=== PATIENT | female | born 1940 | race Caucasian/White ===

== ENCOUNTER 2018-10-02 21:12 | Emergency (ER) | payer MEDICARE ==
[~2018-10-02] VITALS: Ht 152.4 cm; Wt 52.9 kg
[2018-10-02] MEDS ORDERED: ATEN25TA PO (21:22)
[2018-10-02] MEDS ORDERED: ONDANSETRON 4MG/2ML VIAL (J2405) IV ONE (22:45)
[2018-10-02] MEDS: MORPHINE 4 MG/ML 1ML VIAL/SYRINGE (J2270) IV PRN (22:46)
--- NOTE | 2018-10-02 22:59 | REPVR ---
EXAM: CT Chest Without Contrast EXAM DATE/TIME: 10/02/2018 10:14 PM CLINICAL HISTORY: 78 years old, female; Injury or trauma; Fall; Initial encounter; Dislocation TECHNIQUE: Imaging protocol: Axial computed tomography images of the chest without intravenous contrast. Coronal and sagittal reformatted images were created and reviewed. 3D rendering: MIP reconstructed images were created and reviewed. Radiation optimization: All CT scans at this facility use at least one of these dose optimization techniques: automated exposure control; mA and/or kV adjustment per patient size (includes targeted exams where dose is matched to clinical indication); or iterative reconstruction. COMPARISON: No relevant prior studies available. FINDINGS: Lungs: Slight interstitial prominence with minimal bibasilar fibro-atelectatic change. Pleural space: Normal. No pneumothorax. No pleural effusion. Heart: Normal. No cardiomegaly. No pericardial effusion. Aorta: Normal. No aortic aneurysm. Lymph nodes: Unremarkable. No enlarged lymph nodes. Bones/joints: Degenerative changes of the lower cervical spine. Fractured and anteriorly dislocated proximal right humerus and displaced and angulated fracture of the proximal left humerus extending into the lateral aspect of the head. Slight anterior wedge compression of T5 and wedge compression and fusion of T12 and L1. Rounded sclerotic focus within the T10 segment with segmental ankylosis from T9-L1. Soft tissues: Unremarkable. Gallbladder and bile ducts: Large gallstones in the gallbladder. Stomach and bowel: Colonic diverticulosis IMPRESSION: 1. Comminuted fracture of the proximal right humerus with anterior dislocation of the humeral head. 2. Comminuted, displaced and angulated fracture of the proximal left humerus. 3. Slight anterior wedge compression of T5 which is likely chronic and compressed and fused T12 and L1 segments which appear to be chronic. There is ankylosis from T9-L1. 4. Slight interstitial prominence with minimal bibasilar fibro-atelectatic change. 5. Cholelithiasis. 6. Colonic diverticulosis. Electronically signed by: Francis Larkin On 10/02/2018 22:58:57 PM
[2018-10-02 23:47] LABS: BASO % 0.2 % (0.0-1.0); EOS % 0.2 % (0.0-3.0); HEMATOCRIT 34.2 % (36.0-47.0); HEMOGLOBIN 11.6 g/dl (12.0-15.5); LYMPH # 0.6 10^3/uL (1.5-4.5); LYMPH % 4.8 % (24.0-44.0); MEAN CORPUSCULAR HEMOGLOBIN 34.1 pg (27.0-33.0); MEAN CORPUSCULAR HGB CONC 33.9 g/dl (32.0-36.5); MEAN CORPUSCULAR VOLUME 100.6 fl (80.0-96.0); MONO # 0.5 10^3/uL (0.0-0.8); MONO % 4.3 % (0.0-5.0); NEUTROPHILS # 11.2 10^3/uL (1.8-7.7); NEUTROPHILS % 90.2 % (36.0-66.0); PLATELET COUNT, AUTOMATED 185 10^3/uL (150-450); WHITE BLOOD COUNT 12.4 10^3/uL (4.0-10.0)
[2018-10-02 23:57] LABS: INR 0.95; PROTHROMBIN TIME 12.8 SECONDS (12.1-14.4)
[2018-10-02 23:58] LABS: PARTIAL THROMBOPLASTIN TIME 27.9 SECONDS (25.4-37.6)
[2018-10-03 00:06] LABS: BLOOD UREA NITROGEN 21 MG/DL (7-18); CALCIUM LEVEL 8.3 MG/DL (8.8-10.2); CARBON DIOXIDE LEVEL 24 MEQ/L (21-32); CHLORIDE LEVEL 105 MEQ/L (98-107); CREATININE FOR GFR 0.66 MG/DL (0.55-1.30); ETHYL ALCOHOL (ETHANOL) 0.006 % (0.000-0.010); GLOMERULAR FILTRATION RATE > 60.0 (>39); GLUCOSE, FASTING 114 MG/DL (70-100); POTASSIUM SERUM 3.9 MEQ/L (3.5-5.1); SODIUM LEVEL 139 MEQ/L (136-145)
[2018-10-03 00:55] VITALS: BP 148/67
[2018-10-03] MEDS: MORPHINE 4 MG/ML 1ML VIAL/SYRINGE (J2270) IV PRN (00:58)
--- NOTE | 2018-10-03 09:06 | REP ---
Clinical: Trauma. Technique: Five views of the right and left humerus. Findings: Examination is limited by positioning. However, there is a comminuted fracture of the proximal left humeral shaft and poorly evaluated fracture involving portion of the right shoulder/proximal humerus. Impression: Bilateral fractures poorly evaluated due to positioning. Electronically Signed by Wesly Meza MD 10/03/2018 08:58 A
== END 2018-10-03 01:03 | disposition short-term general hospital (02) ==
LOC: M ED 21:12
DX: S42.201A Unspecified fracture of upper end of right humerus, initial encounter for closed fracture (principal); S43.014A Anterior dislocation of right humerus, initial encounter; S42.202A Unspecified fracture of upper end of left humerus, initial encounter for closed fracture; M43.25 Fusion of spine, thoracolumbar region; M43.24 Fusion of spine, thoracic region; K80.19 Calculus of gallbladder with other cholecystitis with obstruction; K57.30 Diverticulosis of large intestine without perforation or abscess without bleeding; W01.198A Fall on same level from slipping, tripping and stumbling with subsequent striking against other object, initial encounter; Y92.814 Boat as the place of occurrence of the external cause; Y93.9 Activity, unspecified; Y99.9 Unspecified external cause status; I10 Essential (primary) hypertension; Z79.899 Other long term (current) drug therapy; Z88.2 Allergy status to sulfonamides
CPT/HCPCS: 71250; 73060; 80048; 85025; 85610; 85730; 96374; 96376; 99284; G0480; J2270; J2405